=== PATIENT | female | born 1990 | race Caucasian/White ===

== ENCOUNTER 2022-02-07 22:27 | Emergency (ER) | payer BC ==
[~2022-02-07] VITALS: Ht 180.3 cm; Wt 72.6 kg
[2022-02-08 00:10] LABS: BASO % 0.2 % (0.0-1.0); EOS % 0.7 % (1.0-4.0); HEMATOCRIT 35.8 % (37.0-47.0); LYMPH # 1.7 10*3/uL (1.3-4.4); LYMPH % 29.4 % (27.0-41.0); MEAN CELL VOLUME 83.4 fl (81.0-99.0); MEAN CORPUSCULAR HGB 26.8 pg (27.0-31.0); MEAN CORPUSCULAR HGB CONC 32.1 g/dl (33.0-37.0); MEAN PLATELET VOLUME 8.5 fl (9.6-12.3); MONO # 0.4 10*3/uL (0.1-1.0); MONO % 6.5 % (3.0-9.0); NEUT # 3.7 10*3/uL (2.3-7.9); PLATELET COUNT AUTOMATED 310 10*3/uL (130-400); RED BLOOD COUNT 4.29 10*6/uL (4.10-5.10); RED CELL DISTRI WIDTH 13.3 % (0-14.5); WHITE BLOOD COUNT 5.9 10*3/uL (4.8-10.8)
[2022-02-08 00:37] LABS: BUN 10 mg/dl (9-23); CHLORIDE 107 mmol/L (98-107); POTASSIUM 4.6 mmol/L (3.4-5.1); SODIUM 136 mmol/L (136-145)
[2022-02-08] MEDS ORDERED: SEPTDS PO (01:30)
== END 2022-02-08 01:42 | disposition home or self-care (01) ==
LOC: ED 22:27
PROVIDERS: Internal Medicine
DX: L03.116 Cellulitis of left lower limb (principal)

== ENCOUNTER → 2022-02-16 | Outpatient (CLI) | payer BC ==
[~2022-02-16] MED LIST: SEPTDS PO
== END | disposition home or self-care (01) ==
LOC: WOUNDCARE 00:41
PROVIDERS: ATTEND Nurse Practitioner Family
DX: L97.812 Non-pressure chronic ulcer of other part of right lower leg with fat layer exposed (principal); L97.822 Non-pressure chronic ulcer of other part of left lower leg with fat layer exposed; I87.8 Other specified disorders of veins; F17.200 Nicotine dependence, unspecified, uncomplicated; Z71.6 Tobacco abuse counseling

== ENCOUNTER → 2022-02-23 | Outpatient (CLI) | payer BC | END | disposition home or self-care (01) | LOC: WOUNDCARE | PROVIDERS: ATTEND Nurse Practitioner Family | DX: L97.822 Non-pressure chronic ulcer of other part of left lower leg with fat layer exposed (principal); L97.812 Non-pressure chronic ulcer of other part of right lower leg with fat layer exposed; I87.8 Other specified disorders of veins; Z71.6 Tobacco abuse counseling; F17.200 Nicotine dependence, unspecified, uncomplicated ==

== ENCOUNTER → 2022-06-08 | Outpatient (CLI) | payer BC ==
[2022-06-08 12:01] LABS: BASO % 0.3 % (0.0-1.0); EOS % 0.8 % (1.0-4.0); HEMATOCRIT 37.2 % (37.0-47.0); LYMPH % 23.9 % (27.0-41.0); MEAN CELL VOLUME 80.9 fl (81.0-99.0); MEAN CORPUSCULAR HGB 26.1 pg (27.0-31.0); MEAN CORPUSCULAR HGB CONC 32.3 g/dl (33.0-37.0); MEAN PLATELET VOLUME 7.8 fl (9.6-12.3); MONO # 0.3 10*3/uL (0.1-1.0); MONO % 7.1 % (3.0-9.0); NEUT # 2.7 10*3/uL (2.3-7.9); NEUT % 67.6 % (47.0-73.0); PLATELET COUNT AUTOMATED 277 10*3/uL (130-400); RED CELL DISTRI WIDTH 13.2 % (0-14.5)
[2022-06-08 12:39] LABS: ALKALINE PHOSPHATASE 68 U/L (46-116); BUN 7 mg/dl (9-23); CHLORIDE 105 mmol/L (98-107); POTASSIUM 3.6 mmol/L (3.4-5.1); SGPT/ALT 10 U/L (10-49); TOTAL PROTEIN 7.6 gm/dL (6.0-8.0)
[2022-06-09 18:06] LABS: HEPATITIS C QNT HCV Not Detected IU/mL (.)
== END | disposition home or self-care (01) ==
LOC: LAB 11:24
PROVIDERS: ATTEND Family Medicine
DX: L98.499 Non-pressure chronic ulcer of skin of other sites with unspecified severity (principal); B19.20 Unspecified viral hepatitis C without hepatic coma

== ENCOUNTER → 2022-07-22 | Outpatient (CLI) | payer BC ==
[2022-07-22 08:28] LABS: BASO % 0.2 % (0.0-1.0); EOS # 0.1 10*3/uL (0.0-0.4); EOS % 1.7 % (1.0-4.0); HEMATOCRIT 34.6 % (37.0-47.0); LYMPH # 1.4 10*3/uL (1.3-4.4); LYMPH % 33.5 % (27.0-41.0); MEAN CELL VOLUME 82.2 fl (81.0-99.0); MEAN CORPUSCULAR HGB 25.9 pg (27.0-31.0); MEAN CORPUSCULAR HGB CONC 31.5 g/dl (33.0-37.0); MEAN PLATELET VOLUME 8.5 fl (9.6-12.3); MONO # 0.3 10*3/uL (0.1-1.0); MONO % 7.4 % (3.0-9.0); NEUT # 2.3 10*3/uL (2.3-7.9); PLATELET COUNT AUTOMATED 285 10*3/uL (130-400); RED BLOOD COUNT 4.21 10*6/uL (4.10-5.10); RED CELL DISTRI WIDTH 13.9 % (0-14.5)
[2022-07-22 08:45] LABS: ALKALINE PHOSPHATASE 78 U/L (46-116); BUN 11 mg/dl (9-23); CHLORIDE 105 mmol/L (98-107); POTASSIUM 3.9 mmol/L (3.4-5.1); SGPT/ALT 8 U/L (10-49); TOTAL PROTEIN 7.8 gm/dL (6.0-8.0)
[2022-07-24 14:07] LABS: ATYPICAL pANCA <1:20 titer (Neg:<1:20); CYTOPLASMIC (C-ANCA) <1:20 titer (Neg:<1:20); PERINUCLEAR (P-ANCA) <1:20 titer (Neg:<1:20)
[2022-07-24 16:08] LABS: ANTI-DSDNA ANTIBODIES 16 IU/mL (0-9); ANTI-RNP ANTIBODIES <0.2 AI (0.0-0.9); ANTICHROMATIN ANTIBODIES 0.2 AI (0.0-0.9); ANTISCLERODERMA-70 AB <0.2 AI (0.0-0.9); SJOGREN ANTI-SS-A <0.2 AI (0.0-0.9); SJOREN AB, ANTI-SS-B <0.2 AI (0.0-0.9)
[2022-07-25 20:07] LABS: ANTI MPO ANTIBODIES <0.2 units (0.0-0.9); ANTI PR3 ANTIBODIES <0.2 units (0.0-0.9)
== END | disposition home or self-care (01) ==
LOC: LAB 07:51
PROVIDERS: Internal Medicine; ATTEND Family Medicine
DX: L97.922 Non-pressure chronic ulcer of unspecified part of left lower leg with fat layer exposed (principal)

== ENCOUNTER → 2022-08-23 | Outpatient (CLI) | payer BC ==
[2022-08-23 10:05] LABS: BILIRUBIN Negative (Negative); BLOOD Negative (Negative); CLARITY Cloudy (Clear); COLOR Yellow (Yellow); GLUCOSE Negative (Negative); KETONE Negative (Negative); LEUKO ESTERASE Negative (Negative); NITRITE Negative (Negative); PH 6.5 (4.5-8.0); UROBILINOGEN 0.2 E.U./dl (0.0-1.0)
[2022-08-23 10:14] LABS: BACTERIA TRACE
[2022-08-23 10:15] LABS: WBC 0-2 wbc/hpf (0-5)
== END | disposition home or self-care (01) ==
LOC: LAB 08:46
PROVIDERS: ATTEND Dermatology
DX: Z48.01 Encounter for change or removal of surgical wound dressing (principal); L95.8 Other vasculitis limited to the skin; L53.8 Other specified erythematous conditions

== ENCOUNTER → 2022-10-20 | Outpatient (CLI) | payer BC | END | disposition home or self-care (01) | LOC: LAB 02:33 | PROVIDERS: ATTEND Internal Medicine | DX: L97.919 Non-pressure chronic ulcer of unspecified part of right lower leg with unspecified severity (principal); L97.929 Non-pressure chronic ulcer of unspecified part of left lower leg with unspecified severity ==